=== PATIENT | female | born 1990 | race Caucasian/White ===

== ENCOUNTER 2016-11-29 12:41 | Emergency (ER) | payer OTHER ==
[~2016-11-29] VITALS: Ht 170.2 cm; Wt 93.4 kg
[~2016-11-29 12:41] MED LIST: ACET50TA PO; FIORCAP7 PO; IBUP80TA PO; PERC5TAB6 PO; PRENATAL VITAMIN PO; PROG50IN5 IM; TRI; VALTREX PO
[2016-11-29] MEDS ORDERED: IBUP600T26 (12:54)
[2016-11-29] MEDS ORDERED: KETO2SH (12:54)
[2016-11-29] MEDS ORDERED: PRAZ1CAP (12:54)
[2016-11-29] MEDS ORDERED: KETOROLAC 30 MG/ML VIAL (J1885) IV ONE (13:15)
[2016-11-29 13:45] LABS: BASO % 0.5 % (0.0-1.0); EOS # 0.1 K/mm3 (0.0-0.50); EOS % 1.6 % (0.0-3.0); LARGE UNSTAINED CELL # 0.2 K/mm3 (0.0-0.4); LARGE UNSTAINED CELL % 1.9 % (0.0-4.0); LYMPH # 2.3 K/mm3 (1.5-6.5); LYMPH % 26.9 % (24.0-44.0); MEAN CORPUSCULAR HEMOGLOBIN 31.9 pg (27.0-33.0); MEAN CORPUSCULAR HGB CONC 34.8 g/dl (32.0-36.5); MEAN CORPUSCULAR VOLUME 91.6 fl (80.0-96.0); MONO # 0.5 K/mm3 (0.0-0.8); MONO % 6.6 % (0.0-5.0); NEUTROPHILS # 5.1 K/mm3 (1.8-7.7); NEUTROPHILS % 62.6 % (36.0-66.0); PLATELET COUNT, AUTOMATED 265 k/mm3 (150-450); RED CELL DISTRIBUTION WIDTH 12.1 % (11.5-14.5); WHITE BLOOD COUNT 8.1 K/mm3 (4.0-10.0)
[2016-11-29 13:51] LABS: INR 1.06
[2016-11-29 14:12] LABS: ANION GAP 6 MEQ/L (8-16); BLOOD UREA NITROGEN 11 MG/DL (7-18); CALCIUM LEVEL 9.3 MG/DL (8.5-10.1); CARBON DIOXIDE LEVEL 28 MEQ/L (21-32); CHLORIDE LEVEL 105 MEQ/L (98-107); CREATININE FOR GFR 0.74 MG/DL (0.55-1.02); GLOMERULAR FILTRATION RATE > 60.0 (>60); GLUCOSE, FASTING 100 MG/DL (70-105); POTASSIUM SERUM 3.9 MEQ/L (3.5-5.1); SODIUM LEVEL 139 MEQ/L (136-145)
--- NOTE | 2016-11-29 14:29 | ECGEPIP ---
Stationary ECG Study [facility] - ED Test Date: 2016-11-29 Pat Name: SORIN COCHRAN Department: Room: - Gender: F [employer] Operator: chace : [id number] Requested By: Scott Wilkins PA-C Order Number: [id number] Reading MD: Praveena Cardoso Measurements Intervals [place] Rate: 75 P: 24 MI: 161 QRS: 53 QRSD: 95 T: 5 QT: 389 QTc: 436 Interpretive Statements SINUS RHYTHM WITH FREQUENT VENTRICULAR PREMATURE COMPLEXES ABNORMAL RHYTHM ECG SIMILAR 04/06/16 Electronically Signed On 11-29-2016 14:29:20 EDT by Praveena Cardoso
[2016-11-29] MEDS ORDERED: ISOVUE-370 76% 100ML VIAL (Q9967) As Ordered ONE (14:37)
[2016-11-29 14:49] LABS: CONTROL LINE UCG INT CTR LINE PRESENT
--- NOTE | 2016-11-29 15:40 | REP ---
Clinical: Acute chest pain. Technique: Axial contrast enhanced images from the thoracic inlet to the upper abdomen using 100 ml Isovue 370 intravenous contrast material with coronal and sagittal re-formations. Findings: Satisfactory enhancement of the pulmonary vasculature is achieved and no filling defects are identified to suggest pulmonary embolus. Thoracic aorta is normal caliber without aneurysm or dissection. Heart and pericardium are normal. Bilateral lung castillo are well aerated and clear without acute pulmonary parenchymal consolidation or atelectasis. No nodule or mass lesion. No pleural effusion/reaction. No pneumothorax. No adenopathy. Impression: No evidence for pulmonary embolus. No acute pleuroparenchymal or mediastinal process. Signed by Oscar Segura MD 11/29/2016 03:31 P
[2016-11-29] MEDS ORDERED: NAPR500T PO (15:50)
[2016-11-29] MEDS ORDERED: CYCL10TA PO (15:50)
[2016-11-29 15:51] VITALS: BP 115/72
== END 2016-11-29 15:53 | disposition home or self-care (01) ==
LOC: M ED 13:46
DX: M62.838 Other muscle spasm (principal); R20.2 Paresthesia of skin; Z87.891 Personal history of nicotine dependence
CPT/HCPCS: 71275; 80048; 81025; 84703; 85025; 85610; 85730; 93005; 96374; 99284; J1885; Q9967